=== PATIENT | male | born 1980 | race Hispanic/Latino ===

== ENCOUNTER 2024-04-29 22:17 | Emergency (ER) | payer OTHER ==
[2024-04-29] MEDS ORDERED: ACETAMINOPHEN 500 MG TAB ONE (23:08)
[2024-04-29] MEDS ORDERED: LIDOCAINE VISCOUS 2% 10ML ORAL SOLN ONE (23:09)
[2024-04-29 23:31] LABS: SARS-CoV-2 Antigen CONTROL BLUE LINE VIS/BG OK; SARS-CoV-2 Antigen Rapid Res Negative (Negative)
--- NOTE | 2024-04-29 23:47 | ER ---
Nurse's Notes [facility] Name: Arnie Grider Age: 43 yrs Sex: Male : 1980 Arrival Date: 04/29/2024 Time: 22:17 Bed DX3 Private MD: Diagnosis: Streptococcal tonsillitis Presentation: 04/29 22:23 Chief complaint: Patient states: SORE THROAT, FEVER, BODY ACHES, AND COUGH. ha1 22:23 Coronavirus screen: Vaccine status: Patient reports being unvaccinated. Ebola Screen: ha1 No symptoms or risks identified at this time. Initial Sepsis Screen: Does the patient meet any 2 criteria? No. Patient's initial sepsis screen is negative. Does the patient have a suspected source of infection? No. Patient's initial sepsis screen is negative. Risk Assessment: Do you want to hurt yourself or someone else? Patient reports no desire to harm self or others. Onset of symptoms was April 29, 2024. 22:23 Method Of Arrival: Ambulatory ha1 22:23 Acuity: ANITA 4 ha1 Triage Assessment: 22:23 General: Appears uncomfortable, Behavior is cooperative. Pain: Complains of pain in ha1 SORE THROAT Pain does not radiate. Pain currently is 7 out of 10 on a pain scale. Quality of pain is described as aching. EENT: Throat is reddened. Neuro: Level of Consciousness is awake, alert, obeys commands, Oriented to person, place, time, situation. Cardiovascular: Patient's skin is warm and dry. Respiratory: Airway is patent Respiratory effort is even, unlabored, Respiratory pattern is regular, symmetrical. Historical: - Allergies: 22:42 No Known Allergies; ha1 - PMHx: 22:42 None; ha1 - Immunization history:: Adult Immunizations up to date. - Infectious Disease History:: Denies. - Social history:: Smoking status: Reported history of juuling and/or vaping. Screenin:00 [facility] ED Fall Risk Assessment (Adult) History of falling in the last 3 months, ha1 including since admission No falls in past 3 months (0 pts) Confusion or Disorientation No (0 pts) Intoxicated or Sedated No (0 pts) Impaired Gait No (0 pts) Mobility Assist Device Used No (0 pt) Altered Elimination No (0 pt) Score/Fall Risk Level 0 - 2 = Low Risk Oriented to surroundings, Maintained a safe environment, Educated pt \T\ family on fall prevention, incl call for assistance when getting out of bed, Hourly rounding (assess needs \T\ fall precautionary measures) done. Abuse screen: Denies threats or abuse. Denies injuries from another. Nutritional screening: No deficits noted. Tuberculosis screening: No symptoms or risk factors identified. Assessment: 04/30 00:05 Reassessment: Patient and/or family updated on plan of care and expected duration. Pain ha1 level reassessed. Patient is alert, oriented x 3, equal unlabored respirations, skin warm/dry/pink. Patient states feeling better. Patient states symptoms have improved. Vital Signs: 04/29 22:23 BP 147 / 99; Pulse 100; Resp 18 S; Temp 100.1(O); Pulse Ox 98% on R/A; Weight 107.05 ha1 kg; Height 5 ft. 8 in. ; 04/30 00:06 BP 144 / 89; Pulse 99; Resp 20 S; Temp 99.7(O); Pulse Ox 100% on R/A; ha1 04/29 22:23 Body Mass Index 35.88 (107.05 kg, 172.72 cm) ha1 ED Course: 04/29 22:20 Patient arrived in ED. im 22:23 Arm band placed on right wrist. ha1 22:23 Patient has correct armband on for positive identification. Bed in low position. Call ha1 light in reach. Side rails up X 1. Adult w/ patient. 22:27 Alexander Waite PA is PHCP. cp 22:28 Alexander Kelley MD is Attending Physician. cp 22:42 Triage completed. ha1 23:48 Jessenia Boyd RN is Primary Nurse. ha1 04/30 00:08 No provider procedures requiring assistance completed. Patient did not have IV access ha1 during this emergency room visit. 00:10 Provided Education on: MEDICATION ADMINISTRATION . 1 Administered Medications: 04/29 23:10 Drug: Acetaminophen PO 1000 mg PO once Route: PO; ha1 04/30 00:04 Follow up: Response: No adverse reaction; Temperature is decreased ha1 04/29 23:10 Drug: Viscous Lidocaine Mucous Membrane Liquid (4 %) 5 ml Mucous Membrane once Route: ha1 Mucous Membrane; 04/30 00:04 Follow up: Response: No adverse reaction; Marked relief of symptoms ha1 04/29 23:45 Drug: Amoxicillin-Clavulanate PO 875 mg PO once Route: PO; ha1 04/30 00:04 Follow up: Response: No adverse reaction ha1 Medication: 00:09 VIS not applicable for this client. ha1 Outcome: 04/29 23:46 Discharge ordered by MD. hirsch 04/30 00:08 Discharged to home ambulatory, with family, ha Condition: stable Discharge instructions given to patient, family, Instructed on discharge instructions, follow up and referral plans. medication usage, Demonstrated understanding of instructions, follow-up care, medications, Prescriptions given X 2, 00:10 Patient left the ED. ha1 Signatures: Alexander Waite PA PA cp Ayala, Heidy RN RN ha1 Marni Laws
--- NOTE | 2024-04-29 23:47 | EDPHYS ---
Physician Documentation [facility] Name: Arnie Grider Age: 43 yrs Sex: Male : 1980 Arrival Date: 04/29/2024 Time: 22:17 Bed DX3 Private MD: ED Physician Alexander Kelley HPI: 04/29 22:45 This 43 yrs old Male presents to ER via Ambulatory with complaints of Sore cp Throat. 22:45 The patient presents with sore throat, dysphagia, of both solids and liquids. The cp patient describes throat pain as constant. 22:45 Severity of symptoms: in the emergency department the symptoms are unchanged, despite cp home interventions. Associated signs and symptoms: Pertinent negatives diarrhea, fever, vomiting. 22:45 Modifying factors: the symptoms are aggravated by swallowing. cp Historical: - Allergies: 22:42 No Known Allergies; ha1 - PMHx: 22:42 None; ha1 - Immunization history:: Adult Immunizations up to date. - Infectious Disease History:: Denies. - Social history:: Smoking status: Reported history of juuling and/or vaping. ROS: 22:50 Constitutional: Negative for body aches, chills, fever, poor PO intake, cp 22:50 Eyes: Negative for injury, pain, redness, and discharge, cp 22:50 ENT: Positive for sore throat, Negative for drainage from ear(s), ear pain, difficulty swallowing, difficulty handling secretions, 22:50 Respiratory: Negative for cough, shortness of breath, wheezing, 22:50 Abdomen/GI: Negative for abdominal pain, vomiting, diarrhea, constipation, 22:50 Neuro: Negative for altered mental status, headache, weakness, 22:50 All other systems are negative, Exam: 22:50 Head/Face: Normocephalic, atraumatic. cp 22:50 Constitutional: The patient appears in no acute distress, alert, awake, non-toxic, well developed, well nourished, 22:50 Eyes: Periorbital structures: appear normal, Conjunctiva: normal, no exudate, no injection, Sclera: no appreciated abnormality, Lids and lashes: appear normal, bilaterally, 22:50 ENT: External ear(s): are unremarkable, Ear canal(s): are normal, clear, TM's: dullness, bilaterally, Nose: is normal, Mouth: Lips: moist, Oral mucosa: moist, Posterior pharynx: Airway: no evidence of obstruction, patent, Tonsils: bilaterally enlarged, with erythema, with exudate, Uvula: midline, erythema, that is moderate, 22:50 Neck: ROM/movement: Meningeal signs: are not present, nuchal rigidity, is not appreciated, Lymph nodes: lymphadenopathy is appreciated, anterior cervical nodes, 22:50 Chest/axilla: Inspection: normal, 22:50 Cardiovascular: Rate: tachycardic, Rhythm: regular, 22:50 Respiratory: the patient does not display signs of respiratory distress, Respirations: normal, no use of accessory muscles, no retractions, labored breathing, is not present, Breath sounds: are clear throughout, no decreased breath sounds, no stridor, no wheezing, 22:50 Abdomen/GI: Inspection: abdomen appears normal, Palpation: abdomen is soft and non-tender, in all quadrants, Vital Signs: 22:23 BP 147 / 99; Pulse 100; Resp 18 S; Temp 100.1(O); Pulse Ox 98% on R/A; Weight 107.05 ha1 kg; Height 5 ft. 8 in. ; 04/30 00:06 BP 144 / 89; Pulse 99; Resp 20 S; Temp 99.7(O); Pulse Ox 100% on R/A; ha1 04/29 22:23 Body Mass Index 35.88 (107.05 kg, 172.72 cm) ha1 MDM: 04/29 22:28 Medical Screening Exam initiated 23:45 Data reviewed: vital signs, nurses notes, lab test result(s), and as a result, I will cp discharge patient. 23:45 Differential diagnosis: apthous stomatitis, group A strep tonsillitis, influenza, cp mononucleosis, peritonsillar abscess pharyngitis, tonsillitis. I considered the following discharge prescriptions or medication management in the emergency department Medications were administered in the Emergency Department. See MAR. Counseling: I had a detailed discussion with the patient and/or guardian regarding the historical points, exam findings, and any diagnostic results supporting the discharge/admit diagnosis, lab results, to return to the emergency department if symptoms worsen or persist or if there are any questions or concerns that arise at home. Response to treatment: the patient's symptoms have mildly improved after treatment, and as a result, I will discharge patient. 04/29 22:39 Order name: Flu ha1 04/29 22:39 Order name: Strep 1 04/29 23:07 Order name: SARS RAPID cp Administered Medications: 23:10 Drug: Acetaminophen PO 1000 mg PO once Route: PO; ha1 04/30 00:04 Follow up: Response: No adverse reaction; Temperature is decreased [facility] 04/29 23:10 Drug: Viscous Lidocaine Mucous Membrane Liquid (4 %) 5 ml Mucous Membrane once Route: ha1 Mucous Membrane; 04/30 00:04 Follow up: Response: No adverse reaction; Marked relief of symptoms 1 04/29 23:45 Drug: Amoxicillin-Clavulanate PO 875 mg PO once Route: PO; 1 04/30 00:04 Follow up: Response: No adverse reaction [facility] Disposition Summary: 04/29/24 23:46 Discharge Ordered Notes: Location: Home cp Problem: new cp Symptoms: have improved cp Condition: Stable cp Diagnosis - Streptococcal tonsillitis cp Followup: cp - With: Private Physician - When: 2 - 3 days - Reason: Worsening of condition Discharge Instructions: - Discharge Summary Sheet cp - Strep Throat, Adult cp - Tonsillitis cp Forms: - Medication Reconciliation Form cp - Antibiotic Education cp - Prescription Opioid Use cp - Patient Portal Instructions cp - Leadership Thank You Letter cp Prescriptions: - Augmentin 875-125 mg Oral Tablet - take 1 tablet ORAL route every 12 hours for 10 days; 20 tablet; Refills: 0, cp Product Selection Permitted - Ibuprofen 800 mg Oral Tablet - take 1 tablet ORAL route every 8 hours As needed take with food; 30 tablet; cp Refills: 0, Product Selection Permitted Signatures: Dispatcher [employer] Alexander Marinelli PA PA cp Jessenia Boyd, RN RN ha1
[2024-04-29] MEDS ORDERED: AMOX/K CLAV 875 MG TAB ONE (23:56)
[2024-04-30 00:35] VITALS: BP 144/89; TEMP 99.7; O2SAT 100
== END 2024-04-30 00:10 | disposition home or self-care (01) ==
LOC: ER 22:17
DX: J03.00 Acute streptococcal tonsillitis, unspecified (principal); Z11.52 Encounter for screening for COVID-19
CPT/HCPCS: 36415; 87081; 87804; 87811; 99283

== ENCOUNTER 2024-06-11 19:47 | Emergency (ER) | payer OTHER ==
[2024-06-11] MEDS ORDERED: AMOX/K CLAV 875 MG TAB ONE (20:28)
[2024-06-11] MEDS ORDERED: TDAP (DIPHTH,PERTUSS(ACELL),TET VAC) 0.5 ML VIAL IMVAC ONE (20:28)
[2024-06-11] MEDS ORDERED: LIDOCAINE 1% MPF 5 ML VIAL ONE (20:28)
--- NOTE | 2024-06-11 20:51 | RAD REPORT ---
Exam:Hand Left 3 View CLINICAL HISTORY: Left hand pain FINDINGS: No fracture or dislocation seen
--- NOTE | 2024-06-11 22:17 | ER ---
Nurse's Notes [facility] Name: Arnie Grider Age: 44 yrs Sex: Male : 1980 Arrival Date: 06/11/2024 Time: 19:47 Bed 14 Private MD: Diagnosis: Bitten by dog Presentation: 06/11 19:55 Chief complaint: Patient states: MY DOGS WERE FIGHTING OVER FOOD AND I WAS TRYING TO ha1 STOP THEM FROM FIGHTING AND ONE OF THEM BIT MY LEFT RING FINGER. 19:55 Coronavirus screen: Vaccine status: Patient reports being unvaccinated. Ebola Screen: ha1 No symptoms or risks identified at this time. Initial Sepsis Screen: Does the patient meet any 2 criteria? No. Patient's initial sepsis screen is negative. Does the patient have a suspected source of infection? No. Patient's initial sepsis screen is negative. Risk Assessment: Do you want to hurt yourself or someone else? Patient reports no desire to harm self or others. Onset of symptoms was June 11, 2024. 19:55 Method Of Arrival: Ambulatory ha1 19:55 Acuity: ANITA 4 ha1 Triage Assessment: 20:05 Bite description: bite sustained to palmar aspect of proximal phalanx of left ring ha1 finger is from animal, by a dog, animal information: vaccination(s) is current. General: Appears uncomfortable, Behavior is calm, cooperative. Pain: Complains of pain in palmar aspect of proximal phalanx of left ring finger Pain does not radiate. Pain currently is 9 out of 10 on a pain scale. Neuro: Level of Consciousness is awake, alert, obeys commands, Oriented to person, place, time, situation. Cardiovascular: Patient's skin is warm and dry. Respiratory: Airway is patent Respiratory effort is even, unlabored, Respiratory pattern is regular, symmetrical. Historical: - Allergies: 20:05 No Known Allergies; ha1 - Immunization history:: Adult Immunizations not up to date. - Infectious Disease History:: Denies. - Social history:: Smoking status: Reported history of juuling and/or vaping. Screenin:22 [facility] ED Fall Risk Assessment (Adult) History of falling in the last 3 months, cp4 including since admission No falls in past 3 months (0 pts) Confusion or Disorientation No (0 pts) Intoxicated or Sedated No (0 pts) Impaired Gait No (0 pts) Mobility Assist Device Used No (0 pt) Altered Elimination No (0 pt) Score/Fall Risk Level 0 - 2 = Low Risk Oriented to surroundings, Maintained a safe environment, Assessed \T\ reinforced patient's understanding of fall precautions, Hourly rounding (assess needs \T\ fall precautionary measures) done. Abuse screen: Denies threats or abuse. Nutritional screening: No deficits noted. Tuberculosis screening: No symptoms or risk factors identified. Assessment: 20:21 General: Appears in no apparent distress. comfortable, Behavior is calm, cooperative, cp4 appropriate for age. Pain: Complains of pain in left hand and palmar aspect of proximal phalanx of left ring finger. Pain: Pain currently is 5 out of 10 on a pain scale. Neuro: Level of Consciousness is awake, alert, obeys commands, Oriented to person, place, time, situation. Cardiovascular: Patient's skin is warm and dry. Respiratory: Airway is patent Respiratory effort is even, unlabored. GI: No signs and/or symptoms were reported involving the gastrointestinal system. : No signs and/or symptoms were reported regarding the genitourinary system. EENT: No signs and/or symptoms were reported regarding the EENT system. Derm: Skin is intact, Skin is pink, warm \T\ dry. Reports laceration to finger. Injury Description: Laceration sustained to left hand and palmar aspect of proximal phalanx of left ring finger is 0.5 to 2.5 cm long, was sustained 30-60 minutes ago. a small amount of bleeding noted at this time. 20:23 Reassessment: [place] [employer] notified of dog bite. Spoke with Ana Maria at 2019. cp4 21:02 Reassessment: [place] [employer] in room with patient. cp4 Vital Signs: 19:55 BP 141 / 107; Pulse 71; Resp 18 S; Temp 98.2(T); Pulse Ox 99% on R/A; Weight 107.5 kg; ha1 22:34 BP 114 / 83; Pulse 68; Resp 18; Pulse Ox 99% ; cp4 ED Course: 19:49 Patient arrived in ED. ra3 20:04 K[facility] Barragan [facility]C [facility]. kb 20:04 Alexander Kelley MD is Attending Physician. kb 20:05 Triage completed. ha1 20:16 Sarina Schreiber is Primary Nurse. cp4 20:22 Bed in low position. Call light in reach. Side rails up X 1. Provided Education on: dog cp4 bite. 20:22 Patient did not have IV access during this emergency room visit. cp4 20:26 Hand Left 3 View XRAY In Process Unspecified. EDMS 22:34 Arm band placed on right wrist. Patient placed in waiting room. cp4 22:35 Assist provider with laceration repair on left hand and palmar aspect of proximal cp4 phalanx of left ring finger that was 2.5 cm. or less using sutures. Set up tray. Performed by Kavya HARO Dressed with band aid, Patient tolerated well. Administered Medications: 20:32 Drug: Boostrix Tdap IM 0.5 ml IM once; as a single dose Route: IM; Site: left deltoid; cp4 22:34 Follow up: Response: No adverse reaction cp4 20:32 Drug: Amoxicillin-Clavulanate PO 875 mg PO once Route: PO; cp4 22:34 Follow up: Response: No adverse reaction cp4 22:33 Drug: Lidocaine Infiltration (1 %) 1 vials 5 ml Infiltration once; to bedside {Note: cp4 Administered by provider..} Volume: 5 ml; Route: Infiltration; 22:33 Drug: HYDROcodone-acetaminophen PO 5 mg-325 mg 1 tabs PO once Route: PO; cp4 22:34 Follow up: Response: No adverse reaction cp4 Medication: 20:22 VIS not applicable for this client. cp4 Outcome: 22:16 Discharge ordered by MD. barry 22:35 Discharged to home ambulatory, cp4 22:35 Condition: stable 22:35 Discharge instructions given to patient, Instructed on discharge instructions, follow up and referral plans. medication usage, Demonstrated understanding of instructions, follow-up care, medications, Prescriptions given X 1, 22:37 Patient left the ED. cp4 Signatures: Dispatcher [employer] EDMS Kavya Barragan FNP-C FNP-Jessenia Waller, RN RN ha1 Sarina Schreiber cp4 Ember Dupree ra3
--- NOTE | 2024-06-11 22:17 | EDPHYS ---
Physician Documentation [facility] Name: Arnie Grider Age: 44 yrs Sex: Male : 1980 Arrival Date: 06/11/2024 Time: 19:47 Bed 14 Private MD: ED Physician Alexander Kelley HPI: 06/11 22:15 This 44 yrs old Male presents to ER via Ambulatory with complaints of Dog Bite.kb 22:15 Pt is a 44 year old male who presents for dog bite to right fourth and fifth digits. kb States he put his hand in the way while his dog was trying to get food. Denies any other injuries. . Historical: - Allergies: 20:05 No Known Allergies; ha1 - Immunization history:: Adult Immunizations not up to date. - Infectious Disease History:: Denies. - Social history:: Smoking status: Reported history of juuling and/or vaping. ROS: 22:13 Constitutional: As per HPI kb Exam: 22:13 Constitutional: This is a well developed, well nourished patient who is awake, alert, kb and in no acute distress. Head/Face: Normocephalic, atraumatic. ENT: Moist Mucous membranes Cardiovascular: Regular rate Respiratory: Respirations even and unlabored. No increased work of breathing. Talking in full sentences MS/ Extremity: Pulses equal, no cyanosis. Neurovascular intact. Full, normal range of motion. Neuro: Awake and alert, GCS 15, oriented to person, place, time, and situation. 22:13 Skin: injury, bite(s), superficial, of the palmar aspect of middle phalanx of right little finger, palmar aspect of proximal phalanx of right little finger and palmar aspect of proximal phalanx of right ring finger, Vital Signs: 19:55 BP 141 / 107; Pulse 71; Resp 18 S; Temp 98.2(T); Pulse Ox 99% on R/A; Weight 107.5 kg; ha1 22:34 BP 114 / 83; Pulse 68; Resp 18; Pulse Ox 99% ; cp4 Laceration: 22:14 Wound Repair of 2cm ( 0.8in ) subcutaneous laceration to palmar aspect of proximal kb phalanx of right ring finger. Irregularly shaped.. Distal neuro/vascular/tendon intact. Anesthesia: Wound infiltrated with 2 mls of 1% lidocaine. Wound prep: Extensive cleansing with hibiclenz by me, Wound irrigation with saline by me. Skin closed with 2 4-0 Prolene using simple sutures and sterile technique. Patient tolerated well. MDM: 20:04 Medical Screening Exam initiated kb 22:14 Differential diagnosis: superficial laceration, tendon injury, vascular injury. Data kb reviewed: vital signs, nurses notes. Counseling: I had a detailed discussion with the patient and/or guardian regarding the historical points, exam findings, and any diagnostic results supporting the discharge/admit diagnosis, radiology results, the need for outpatient follow up, a family practitioner, to return to the emergency department if symptoms worsen or persist or if there are any questions or concerns that arise at home. 06/11 20:10 Order name: Hand Left 3 View XRAY; Complete Time: 21:00 kb 06/11 20:10 Order name: Dressing - Wound; Complete Time: 20:32 kb 06/11 20:10 Order name: Gloves, Sterile; Complete Time: 20:32 kb 06/11 20:10 Order name: Prolene, Sutures; Complete Time: 20:32 kb 06/11 20:10 Order name: Setup Suture Tray; Complete Time: 20:32 kb Administered Medications: 20:32 Drug: Boostrix Tdap IM 0.5 ml IM once; as a single dose Route: IM; Site: left deltoid; cp4 22:34 Follow up: Response: No adverse reaction cp4 20:32 Drug: Amoxicillin-Clavulanate PO 875 mg PO once Route: PO; cp4 22:34 Follow up: Response: No adverse reaction cp4 22:33 Drug: Lidocaine Infiltration (1 %) 1 vials 5 ml Infiltration once; to bedside {Note: cp4 Administered by provider..} Volume: 5 ml; Route: Infiltration; 22:33 Drug: HYDROcodone-acetaminophen PO 5 mg-325 mg 1 tabs PO once Route: PO; cp4 22:34 Follow up: Response: No adverse reaction cp4 Disposition Summary: 06/11/24 22:16 Discharge Ordered Notes: Location: Home Condition: Stable kb Diagnosis - Bitten by dog kb Followup: kb - With: Emergency Department - When: As needed - Reason: Worsening of condition Followup: kb - With: Private Physician - When: 2 - 3 days - Reason: Recheck today's complaints, Continuance of care, Re-evaluation by your physician Discharge Instructions: - Discharge Summary Sheet kb - Animal Bite, Adult, [id number] kb Forms: - Medication Reconciliation Form kb - Antibiotic Education kb - Prescription Opioid Use kb - Patient Portal Instructions kb - Leadership Thank You Letter kb Prescriptions: - Augmentin 875-125 mg Oral Tablet - take 1 tablet ORAL route every 12 hours for 10 days; 20 tablet; Refills: 0, kb Product Selection Permitted Signatures: Dispatcher [employer] EDKavya Quezada, TALENT ACQUISITION MANAGER-C Jessenia Yuen, RN RN ha1 Sarina Schreiber cp4
[2024-06-11] MEDS ORDERED: HYDROCODONE/APAP 5/325 MG TAB ONE (22:31)
[2024-06-11 22:44] VITALS: TEMP 98.2; O2SAT 99
[2024-06-11 22:46] VITALS: BP 114/83
== END 2024-06-11 22:37 | disposition home or self-care (01) ==
LOC: ER 19:47
DX: S61.215A Laceration without foreign body of left ring finger without damage to nail, initial encounter (principal); W54.0XXA Bitten by dog, initial encounter
CPT/HCPCS: 73130; 96372; 99284; 12041; J2003